=== PATIENT | male | born 1995 ===

== ENCOUNTER 2017-07-05 15:56 | Emergency (ER) | payer SELFPAY ==
[2017-07-05 16:13] VITALS: BP 146/82; PULSE 84; RESP 18; TEMP 98.8; O2SAT 100; BMI 21.2
--- NOTE | 2017-07-05 16:49 | C.PDOC ---
History Of Present Illness Patient complains of left knee pain for 3 days. He reports pain is aching and worsened with walking or bending of the knee. He denies any direct injury, twisting, swelling, redness, numbness or weakness of the knee. He took naproxen 220mg for the pain with mild relief. Time Seen by Provider: 07/05/17 16:38 Chief Complaint (Nursing): Lower Extremity Problem/Injury History Per: Patient History/Exam Limitations: no limitations Onset/Duration Of Symptoms: Days (3) Current Symptoms Are (Timing): Still Present Past Medical History Reviewed: Historical Data, Nursing Documentation, Vital Signs Vital Signs: Last Vital Signs Temp 98.8 F 07/05/17 16:12 Pulse 84 07/05/17 16:12 Resp 18 07/05/17 16:12 BP 146/82 07/05/17 16:12 Pulse Ox 100 07/05/17 16:12 - Medical History PMH: No Chronic Diseases Surgical History: No Surg Hx Family History: States: Unknown Family Hx - Social History Hx Alcohol Use: No Hx Substance Use: No - Immunization History Hx Tetanus Toxoid Vaccination: No Hx Influenza Vaccination: No Hx Pneumococcal Vaccination: No Review Of Systems Except As Marked, All Systems Reviewed And Found Negative. Musculoskeletal: Positive for: Leg Pain (left knee) Physical Exam - Physical Exam Appears: Non-toxic, No Acute Distress Skin: Warm, Dry, No Rash, No Ecchymosis Head: Atraumatic, Normacephalic Eye(s): bilateral: Normal Inspection, EOMI Neck: Normal ROM Chest: Symmetrical Pulses: Left Dorsalis Pedis: Normal Neurological/Psych: Oriented x3, Normal Speech Gait: Steady Additional Physical Exam Comments: Left leg: Tenderness to lateral aspect of the knee without any swelling, erythema or crepitus. No tenderness to patella or medial side. Pain with flexion of the knee. No calf tenderness. Ankle and foot nontender with normal ROM. All other extremities with normal ROM, nontender and no swollen joints. ED Course And Treatment O2 Sat by Pulse Oximetry: 100 Medical Decision Making Medical Decision Making: Patient with knee pain for 3 days and no trauma. Based on history and exam, xray not clinically indicated. Knee brace applied. Recommend Naproxen 500mg BID for pain as needed. Recommend rest ice and elevation. Instruct if the pain persists to follow up with PCP or orthopedic Disposition Counseled Patient/Family Regarding: Diagnosis, Need For Followup, Rx Given - Disposition Referrals: Ahsan Zaidi MD [Staff Provider] - [facility] [Outside] [place] [employer] [Outside] Disposition: HOME/ ROUTINE Disposition Time: 16:51 Condition: GOOD Additional Instructions: Realice un seguimiento con la clnica u ortopdico si el dolor dura ms de mary semana Paullina naproxeno 500 mg dos veces al da jessie mary semana aplicar hielo y descansar la rodilla Instructions: Knee Pain (ED) Forms: [facility] (Prydeinig), Work Excuse - POA Present On Arrival: None - Clinical Impression Clinical Impression: Knee pain, left
== END 2017-07-05 17:22 | disposition home or self-care (01) ==
LOC: C.ER 15:56
DX: M25.562 Pain in left knee (principal)

== ENCOUNTER 2017-07-10 12:05 | Emergency (ER) | payer SELFPAY ==
[2017-07-10 12:05] VITALS: BMI 21.2
[2017-07-10 12:45] VITALS: BP 149/82; PULSE 92; RESP 18; TEMP 98.4; O2SAT 100
--- NOTE | 2017-07-10 13:24 | C.PDOC ---
History Of Present Illness 22 yr old male presents to the ER with complaints of left knee pain for 10 days. He reports pain is aching and worsened with walking or bending of the knee. Patient took naproxen 220mg for the pain with mild relief. Knee immobilizer noted the left left knee. Denies new injury, foot pain, leg pain, weakness or numbness. Time Seen by Provider: 07/10/17 12:47 Chief Complaint (Nursing): Lower Extremity Problem/Injury History Per: Patient History/Exam Limitations: clinical condition Onset/Duration Of Symptoms: Days Current Symptoms Are (Timing): Still Present Past Medical History Reviewed: Historical Data, Nursing Documentation, Vital Signs Vital Signs: Last Vital Signs Temp 98.4 F 07/10/17 12:43 Pulse 92 H 07/10/17 12:43 Resp 18 07/10/17 12:43 BP 149/82 07/10/17 12:43 Pulse Ox 100 07/10/17 13:28 Family History: States: No Known Family Hx - Social History Hx Alcohol Use: No Hx Substance Use: No - Immunization History Hx Tetanus Toxoid Vaccination: No Hx Influenza Vaccination: No Hx Pneumococcal Vaccination: No Review Of Systems Except As Marked, All Systems Reviewed And Found Negative. Musculoskeletal: Positive for: Other ((+) left knee pain). Negative for: Leg Pain, Foot Pain Neurological: Negative for: Weakness, Numbness Physical Exam - Physical Exam Appears: Non-toxic, No Acute Distress Skin: Warm, Dry, No Rash, No Ecchymosis Extremity: Normal ROM (Left knee with mild discomfort to knee flexion), Tenderness (mild overlying lateral aspect knee, no deformity, no skin changes.) , No Calf Tenderness, No Deformity, No Swelling Neurological/Psych: Oriented x3, Normal Speech, Normal Motor, Normal Sensation, Normal Reflexes ED Course And Treatment O2 Sat by Pulse Oximetry: 100 (RA) Pulse Ox Interpretation: Normal - Other Rad X-Ray - Left Knee X-Ray: Interpreted by Me, Viewed By Me Interpretation: (-) ACUTE FX OR DISLOCATION Progress Note: On re-eval, pt is afebrile, hemodynamicalys table. Non-toxic. Ambulatory in ED with stable gait. LLE: mild tenderness over lateral aspect knee c/w knee arthralgia r/o sprain. FAROM, no neurovascular deficits. Imaging review (-). Pt advised. ref. to F/u with Ortho in 2 -3 days for re-eavl. return if any new chanegs. Medical Decision Making Medical Decision Making: PLAN: * X-Ray - Left Knee * Motrin PO Disposition Counseled Patient/Family Regarding: Studies Performed, Diagnosis, Need For Followup, Rx Given - Disposition Referrals: [facility] [Outside] [facility] [Outside] Disposition: HOME/ ROUTINE Disposition Time: 13:40 Condition: STABLE Additional Instructions: USE KNEE IMMOBILIZER FOR 1 WEEK ONLY DURING AMBULATION/WALKING, REMOVE AT NIGHT TIME TAKE MEDICATION PRESCRIBED FOLLOW UP WITH ORTHOPEDIST IN 2-3 DAYS FOR RE-EVALUATION AND MRI NEED RETURN TO ED IF ANY NEW CHANGES. 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 - Scribe Statement The provider has reviewed the documentation as recorded by the Scribe Gwen Ritchie All medical record entries made by the Scribe were at my direction and personally dictated by me. I have reviewed the chart and agree that the record accurately reflects my personal performance of the history, physical exam, medical decision making, and the department course for this patient. I have also personally directed, reviewed, and agree with the discharge instructions and disposition.
--- NOTE | 2017-07-10 13:43 | RAD ---
PROCEDURE: Left Knee Radiographs. HISTORY: COMPARISON: None available. FINDINGS: Rotated lateral view limits evaluation. BONES: No acute displaced fracture. JOINTS: No dislocation. JOINT EFFUSION: No significant joint effusion. OTHER FINDINGS: None. IMPRESSION: No acute displaced fracture, dislocation, or significant joint effusion identified. If symptoms persist, or if there is continued clinical concern, x-ray follow-up in 7-10 days should be considered.
== END 2017-07-10 13:59 | disposition home or self-care (01) ==
LOC: C.ER 12:05
DX: M25.562 Pain in left knee (principal)